=== PATIENT | male | born 1960 | race Caucasian/White ===

== ENCOUNTER 2023-01-24 05:54 | Day surgery (SDC) | payer OTHER ==
[2023-01-24] VITALS (18 sets, daily range): BP systolic 95–145; BP diastolic 57–90
[~2023-01-24] VITALS: Ht 175.3 cm; Wt 81.1 kg
[~2023-01-24 05:54] MED LIST: GABA100; LISI20 PO; Voltaren100 GM TOP
--- NOTE | 2023-01-24 06:59 | NUR ---
Ambulatory in Day Surgery Surgical site prepped with 2% Chlorhexidine cloth wipe. History, Chart, Medications and Allergies reviewed before start of procedure. Lungs clear T/O to Auscultation. Pre-Op teaching done. Pt verbalizes understanding.
--- NOTE | 2023-01-24 08:20 | NUR ---
01/24/23 0820 Carol Real PATIENT RECEIVED VANCO 1GM IV IN THE PRE OP SETTING PRIOR TO ARRIVING IN THE OR.
--- NOTE | 2023-01-24 10:50 | NUR ---
ARRIVAL PATIENT TO ROOM FROM PACU WHILE THIS RN RECEIVING REPORT FROM EMBALMER APPRENTICE. PATIENT DROWSY UPON ARRIVAL, WAKES TO VERBAL STIMULI THEN GOES BACK TO SLEEP, A&O X4. SOFT BP IN THE 90'S\70'S. O2 87-90% ON RA, 2L O2 PLACED ON PATIENT AT THIS TIME. HEART RATE 45-55 CURRENTLY. PREM WRAP & POLAR PACK TO LEFT KNEE. PATEINT REPORTS SENSATION TO BLE, ALTHOUGH SOME NUMBNESS. DENIES PAIN. ORIENTED TO ROOM & CALL LIGHT, IN REACH.
--- NOTE | 2023-01-24 13:22 | NUR ---
Pt. is awake in bed and welcomes my visit. Pt. is pleasant. Facilitated a life review and listened with interest and engagement. Pt. displayed evidence of being focused on recovery so that a second knee replacement could be scheduled. Prayed with Pt. Pt. displayed evidence of genuine appreciation for the spiritual care visit, and welcomed this front office director to return.
--- NOTE | 2023-01-24 18:24 | NUR ---
SHIFT SUMMARY POD 0 L TKA. PREM WRAP & POLAR PACK TO LEFT KNEE, C/D/I. EATING, DRINKING, & VOIDING W/O DIFFICULTY, DENIES N/V. PATIENT DENIES PAIN. WORKED WITH PHYSICAL THERAPY, AMBULATING WELL SBA W/ FWW & GB. UP TO CHAIR & BATHROOM THIS AFTERNOON. CALLS APPROPRIATELY, IN REACH. WILL REPORT TO ONCOMING RN AT 1900.
[2023-01-25 04:13] VITALS: BP 138/81
[2023-01-25 05:07] LABS: BASOPHILS ABSOLUTE AUTO 0.02 K/mm3 (0.00-0.23); BASOPHILS PERCENT AUTO 0 % (0-2); EOSINOPHILS ABSOLUTE AUTO 0.01 K/mm3 (0.00-0.68); EOSINOPHILS PERCENT AUTO 0 % (0-6); Hematocrit 34.5 % (37.0-53.0); Hemoglobin 11.8 g/dL (13.5-17.5); IMMATURE GRAN ABSOLUTE AUTO 0.12 K/mm3 (0.00-0.10); IMMATURE GRAN PERCENT AUTO 1 % (0-1); LYMPHOCYTES ABSOLUTE AUTO 1.87 K/mm3 (0.84-5.20); LYMPHOCYTES PERCENT AUTO 9 % (21-46); MONOCYTES ABSOLUTE AUTO 1.49 K/mm3 (0.16-1.47); MONOCYTES PERCENT AUTO 8 % (4-13); Mean Corpuscular HGB 31.7 pg (26.0-34.0); Mean Corpuscular HGB Conc 34.2 g/dL (31.5-36.5); Mean Corpuscular Volume 93 fL (80-100); NEUTROPHILS ABSOLUTE AUTO 16.47 K/mm3 (1.96-9.15); NEUTROPHILS PERCENT AUTO 82 % (41-73); Platelet Count 169 K/mm3 (150-400); RDW Coefficient Variation 13.2 % (11.7-14.2); RDW Standard Deviation 45.1 fL (35.1-46.3); Red Blood Cell Count 3.72 M/mm3 (4.30-5.90); White Blood Cell Count 19.98 K/mm3 (4.00-11.30)
--- NOTE | 2023-01-25 05:26 | NUR ---
SHIFT SUMMARY POD1, LEFT TKA. GAUZE/ PREM WRAP IN PLACE, C/D/I. CONTINUOUS POLAR PACK USE. A&OX4 UP IN RECLINER T/O NIGHT, LEGS ELEVATED. SELF EXERCISING/ROM TO LEGS PAIN MEDS 1X @HS, 2 OXY W/ RELIEF. DENIES N/T, N/V, OR SOB. VOIDED 1X BUT REPORTS FEELING ABLE TO URINATE AT THIS TIME ALTHOUGH WANTS TO SLEEP. HR CONTINUES TO BE HOMER @50 THIS AM, DENIES DIZZINESS. PLANS FOR POSSIBLE DC TODAY. CALL LIGHT W/IN REACH, WILL REPORT TO SAMINA EPPERSON.
[2023-01-25 05:42] LABS: Bun/Creatinine Ratio 25.7 (12.0-20.0); Calcium, Blood 8.9 mg/dL (8.5-10.1); Creatinine, Blood 1.01 mg/dL (0.60-1.20); Magnesium, Blood 2.1 mg/dL (1.6-2.4); Potassium, Blood 4.5 mmol/L (3.5-5.5)
[2023-01-25] MEDS ORDERED: ASPI81CH PO (07:10)
[2023-01-25] MEDS ORDERED: OXYC5 PO (07:10)
[2023-01-25] MEDS ORDERED: PROM25 PO (07:11)
[2023-01-25] MEDS ORDERED: SULTRIDS PO (07:12)
[2023-01-25 07:22] VITALS: BP 171/92
--- NOTE | 2023-01-25 09:02 | NUR ---
DISCHARGE PT HAS CLEARED THERAPY. PAIN WELL CONTROLLED PER EMAR. EATING, DRINKING, & VOIDING WELL. AQUACEL OVER EACH INCISION ON LEFT KNEE, C/D/I. AMBULATING WELL W/ FWW & GB. DISCUSSED DISCHARGE INSTRUCTIONS & SENT WITH PATIENT. PATIENT WAITING FOR RIDE.
[2023-01-25 09:08] VITALS: BP 153/85
--- NOTE | 2023-01-25 09:35 | NUR ---
ESCORTED OUT VIA W/C
== END 2023-01-25 09:39 | disposition home or self-care (01) ==
LOC: ORSCMMR 05:54 → SURS 11:18 → ORSCMMR 01-25 09:39
PROVIDERS: Orthopaedic Surgery
PROC: 0SRD0J9 Replacement of Left Knee Joint with Synthetic Substitute, Cemented, Open Approach (ICD-10-PCS; principal; 2023-01-24 07:30)
DX: M17.0 Bilateral primary osteoarthritis of knee (principal); I10 Essential (primary) hypertension; Z79.899 Other long term (current) drug therapy
CPT/HCPCS: 36415; 73560-LT; 80048; 83735; 85025; 97110; 97116; 97162; 97530; A9270; C1713; C1776; J0171; J0690; J0735; J1100; J1885; J2250; J2405; J2704; J2795; J3010; J3370; J7120

== ENCOUNTER 2023-11-27 13:57 | Observation (INO) | payer OTHER ==
[2023-11-27] VITALS (12 sets, daily range): BP systolic 132–184; BP diastolic 74–101
[~2023-11-27] VITALS: Ht 172.7 cm; Wt 87.2 kg
[~2023-11-27 13:57] MED LIST changes: +ASPI81CH PO; +OXYC5 PO; +PROM25 PO; +SULTRIDS PO
[2023-11-27] MEDS ORDERED: Lactated Ringer's 1,000 ML IV SCH (14:25)
[2023-11-27] MEDS ORDERED: Acetaminophen 500 MG Tab PO SCH (14:25)
[2023-11-27] MEDS ORDERED: Chlorhexidine Mouth Care 15 ML UDC MT SCH (14:25)
[2023-11-27] MEDS ORDERED: OxyCODONE HCL 10 MG TABCR PO SCH (14:25)
[2023-11-27] MEDS ORDERED: Vancomycin HCL 1,000 MG in NS 100 ML IV SCH (14:25)
[2023-11-27] MEDS ORDERED: CefTRIAXone Sodium 1,000 MG in NS 100 ML IV ONE ×2 (14:30→18:30)
[2023-11-27] MEDS ORDERED: Tranexamic Acid 100 ML IV SCH (14:34)
--- NOTE | 2023-11-27 14:37 | NUR ---
Ambulatory in Day Surgery History, Chart, Medications and Allergies reviewed before start of procedure. Pre-Op teaching done. Pt verbalizes understanding. Patient States Post-Procedure ride home has been arranged.
[2023-11-27] MEDS ORDERED: Norco 5-325 Ta1 EACH PO ×2 (14:47)
[2023-11-27] MEDS ORDERED: FentaNYL Citrate 50 MCG/ML 2 ML Injection ONE ×3 (15:21→16:44)
[2023-11-27] MEDS ORDERED: FentaNYL Citrate 50 MCG/ML 2 ML Injection IV ONE ×2 (15:25→15:50)
--- NOTE | 2023-11-27 15:27 | NUR ---
CONTINUES TO HAVE SEVERE LEFT HAND PAIN. AWAITING FOR SURGERY IN PRE-OP. NEW ORDERS PER DR DOVE TO GIVE FENTANYL 50MCG IV FOR PAIN CONTROL. WILL CONTINUE TO MONITOR AND TX PRN.
[2023-11-27] MEDS ORDERED: Metoclopramide HCl 10 MG Tab PO PRN (16:10)
[2023-11-27] MEDS ORDERED: Acetaminophen 325 MG TABLET PO PRN (16:10)
[2023-11-27] MEDS ORDERED: Magnesium Hydroxide Conc 10 ML UDC PO PRN (16:10)
[2023-11-27] MEDS ORDERED: Naloxone HCl 0.4MG / ML 1ML Vial IV PRN (16:10)
[2023-11-27] MEDS ORDERED: propofoL 20 ML IV ONE (16:12)
[2023-11-27] MEDS ORDERED: Ondansetron HCl 2 MG / ML 2ML Vial IV PRN ×2 (16:15→17:20)
[2023-11-27] MEDS ORDERED: Ondansetron 4 MG TAB PO PRN (16:15)
[2023-11-27] MEDS ORDERED: OxyCODONE HCL 5 MG TAB PO PRN (16:15)
[2023-11-27] MEDS ORDERED: Bisacodyl 10 MG Supp PR PRN (16:15)
[2023-11-27] MEDS ORDERED: HYDROmorphone HCl/Pf 1MG SYR IV PRN ×2 (16:20→17:25)
[2023-11-27] MEDS ORDERED: NS KCl 20mEq 1,000 ML IV SCH (16:20)
[2023-11-27] MEDS ORDERED: Naproxen 500 MG Tab PO PRN (16:25)
[2023-11-27] MEDS ORDERED: Ketorolac Tromethamine 30mg Vial IV PRN (16:25)
[2023-11-27] MEDS ORDERED: Midazolam HCl 1MG / ML 2ML Vial IV ONE (16:25)
[2023-11-27] MEDS ORDERED: Labetalol HCL 5 MG/ML 4ML Injection (Single Dose) ONE (16:46)
[2023-11-27] MEDS ORDERED: Ketamine HCl 100 MG / ML 5ML Vial ONE (16:50)
[2023-11-27] MEDS ORDERED: Glycopyrrolate 0.2 MG/ML 5ML VIAL ONE (16:58)
[2023-11-27] MEDS ORDERED: Phenylephrine HCl 100 MCG/ML-NS 10MLSYR (1MG/10ML) ONE (17:04)
[2023-11-27] MEDS ORDERED: Ondansetron HCl 2 MG / ML 2ML Vial ONE (17:11)
[2023-11-27] MEDS ORDERED: Dexamethasone Sod Phos 10 MG/ML 1ML VIAL ONE (17:11)
--- NOTE | 2023-11-27 17:16 | NUR ---
11/27/23 1715 Erika Andino 1GM ROCHEPHIN GIVEN BY ANESTHESIA AT 1712
[2023-11-27] MEDS ORDERED: Ropivacaine 0.5% HCl/Pf 5 MG/ML 20ML VIAL ONE (17:17)
[2023-11-27] MEDS ORDERED: FentaNYL Citrate 50 MCG/ML 2 ML Injection IV PRN ×2 (17:20→17:25)
[2023-11-27] MEDS ORDERED: Flumazenil 0.1 MG / ML 5ML Vial ONE (17:35)
[2023-11-27] MEDS ORDERED: Lisinopril 20 MG Tab PO ONE (18:35)
--- NOTE | 2023-11-27 19:12 | NUR ---
PT ARRIVED TO FLOOR FROM PACU. ORIENTED TO ROOM. PT MEDICATED FOR PAIN AND BP. DINNER PROVIDED. AMBULATED TO RESTROOM AND VOIDED. REPORT GIVEN TO ONCOMING SHIFT. CALL LIGHT WITHIN REACH.
[2023-11-27] MEDS ORDERED: NS 250 ML IV PRN (19:40)
[2023-11-27] MEDS ORDERED: Docusate Sodium 100 MG Cap PO SCH (21:00)
[2023-11-28 02:13] VITALS: BP 157/101
--- NOTE | 2023-11-28 04:45 | NUR ---
SHIFT SUMMARY POD 1 L WRIST I&D PT SLEPT FOR MOST OF THE NIGHT. PAIN MANAGED PER EMAR. TOLERATING PO INTAKE, VOIDING. ABLE TO WIGGLE FINGERS IN L HAND. DRESSING TO L HAND/WRIST IS C/D/I. A LITTLE HYPERTENSIVE THIS MORNING BUT WILL BE GETTING HIS MORNING DOSE OF LISINOPRIL. NO OTHER NEEDS AT THIS TIME, CALL LIGHT WITHIN REACH
[2023-11-28] MEDS ORDERED: Vancomycin HCL 1,250 MG in NS 250 ML IV SCH (05:00)
[2023-11-28 05:55] LABS: BASOPHILS ABSOLUTE AUTO 0.01 K/mm3 (0.00-0.23); BASOPHILS PERCENT AUTO 0 % (0-2); EOSINOPHILS PERCENT AUTO 0 % (0-6); Hematocrit 27.2 % (37.0-53.0); Hemoglobin 9.2 g/dL (13.5-17.5); IMMATURE GRAN ABSOLUTE AUTO 0.07 K/mm3 (0.00-0.10); IMMATURE GRAN PERCENT AUTO 1 % (0-1); LYMPHOCYTES ABSOLUTE AUTO 1.42 K/mm3 (0.84-5.20); LYMPHOCYTES PERCENT AUTO 10 % (21-46); MONOCYTES ABSOLUTE AUTO 1.01 K/mm3 (0.16-1.47); MONOCYTES PERCENT AUTO 7 % (4-13); Mean Corpuscular HGB 31.2 pg (26.0-34.0); Mean Corpuscular HGB Conc 33.8 g/dL (31.5-36.5); Mean Corpuscular Volume 92 fL (80-100); Mean Platelet Volume 10.6 fL (9.1-12.4); NEUTROPHILS ABSOLUTE AUTO 11.58 K/mm3 (1.96-9.15); NEUTROPHILS PERCENT AUTO 82 % (41-73); Platelet Count 244 K/mm3 (150-400); RDW Coefficient Variation 14.6 % (11.7-14.2); RDW Standard Deviation 49.7 fL (35.1-46.3); Red Blood Cell Count 2.95 M/mm3 (4.30-5.90); White Blood Cell Count 14.09 K/mm3 (4.00-11.30)
[2023-11-28 06:02] LABS: Bun/Creatinine Ratio 40.2 (12.0-20.0); C-REACTIVE PROTEIN, EXT RANGE 7.43 mg/dL (0.000-0.300); Calcium, Blood 9.6 mg/dL (8.5-10.1); Creatinine, Blood 0.77 mg/dL (0.60-1.20); Magnesium, Blood 1.7 mg/dL (1.6-2.4); Potassium, Blood 4.6 mmol/L (3.5-5.5)
[2023-11-28 07:04] VITALS: BP 156/85
[2023-11-28] MEDS ORDERED: Lisinopril 20 MG Tab PO SCH (09:00)
[2023-11-28] MEDS ORDERED: CefTRIAXone Sodium 2,000 MG in NS 100 ML IV SCH (09:00)
[2023-11-28 14:45] VITALS: BP 159/81
[2023-11-28] MEDS ORDERED: Percocet 5-3251 EACH PO ×2 (15:36)
--- NOTE | 2023-11-28 16:28 | NUR ---
SHIFT/DISCHARGE SUMMARY PATIENT DISCHARGE PAPERWORK AND FOLLOW UP APPT. ARE COMPLETED. PATIENT RECIEVING LAST DOSE OF VANCO IN PICC. PERIPHERAL IV DC'D INTACT. PATIENT TO COME TO [facility] IN AM FOR INFUSIONS. PATIENT RIDE IS COMING AT 1800.
--- NOTE | 2023-11-28 17:12 | NUR ---
NG TUBE PLACED DOBHOFF AND X-RAY WAS DONE CONFIRMED PLACEMENT WITH DR. ADAME TUBE FEED RESUMED.
--- NOTE | 2023-11-28 17:31 | NUR ---
SUMMARY PATIENT IN SOFT WRIST RESTRAINTS FOR LINE PULLING, NEW DOBHOFF PLACED, FEEDS RESUMED. STILL INFUSING CPN. PATIENT IS STILL CONFUSED AND TRIES TO GET OUT OF BED, BED ALARM ON. PICCO DRESSING TAKEN OFF AND MEDIPORE DRESSING PLACED OVER MIDLINE, NEW OSTOMY APPLIANCE PLACED AND WOUND CLEANED WITH WOUND CLEANSER AND GAUZE. S/S DRNG NOTED ABOUT MIDDLE OF MEDIPORE. OSTOMY OUT PUT BROWN LIQUID, STOMA IS PINK AND BEEFY. VSS, CALL LIGHT IN REACH WILL REPORT TO B2B APPOINTMENT SETTER.
== END 2023-11-28 18:18 | disposition home or self-care (01) ==
LOC: ORSCMMR 13:57 → SURS 13:57 → ORSCMMR 13:59 → SURS 18:07 → ORSCMMR 18:08 → SURS 18:08
PROVIDERS: ADMIT Orthopaedic Surgery
PROC: 0L960ZZ Drainage of Left Lower Arm and Wrist Tendon, Open Approach (ICD-10-PCS; principal; 2023-11-27 16:00)
DX: M65.132 Other infective (teno)synovitis, left wrist (principal); I10 Essential (primary) hypertension; Z79.899 Other long term (current) drug therapy
CPT/HCPCS: 36415; 36573; 80048; 83735; 85025; 85651; 86140; 87070; 87071; 87075; 87077; 87147; 87186; 87205; 93005; 93010; 97110; 97165; A9270; C1751; J0696; J1100; J1885; J2250; J2371; J2405; J2704; J2795; J3010; J3370; J7050; J7120

== ENCOUNTER 2023-11-29 02:05 | Day surgery (SDC) | payer OTHER ==
[~2023-11-29] VITALS: Ht 172.7 cm; Wt 87.2 kg
[~2023-11-29 02:05] MED LIST changes: +CefTRIAXone Sodium 2,000 MG in NS 100 ML IV SCH; +Norco 5-325 Ta1 EACH PO; +Percocet 5-3251 EACH PO
[2023-11-29 07:30] VITALS: BP 115/82
[2023-11-29] MEDS ORDERED: Vancomycin HCL 1,250 MG in NS 250 ML IV SCH (08:35)
[2023-11-29 08:57] LABS: Creatinine, Blood 0.99 mg/dL (0.60-1.20)
[2023-11-29 16:00] VITALS: BP 123/77
[2023-11-30 10:22] LABS: Vancomycin, Trough 7.1 ug/mL (5.0-10.0)
== END 2023-11-29 23:14 | disposition home or self-care (01) ==
LOC: ATC 02:05
PROVIDERS: Orthopaedic Surgery
DX: I10 Essential (primary) hypertension (principal); M01.X42 Direct infection of left hand in infectious and parasitic diseases classified elsewhere; Z79.899 Other long term (current) drug therapy; T81.44XA Sepsis following a procedure, initial encounter
CPT/HCPCS: 80202; 82565; 96365; 96367; J0696; J3370; J7050

== ENCOUNTER 2023-12-01 05:43 | Day surgery (SDC) | payer OTHER ==
[~2023-12-01 05:43] MED LIST changes: -CefTRIAXone Sodium 2,000 MG in NS 100 ML IV SCH
[2023-12-01] MEDS ORDERED: Vancomycin HCL 1,500 MG in NS 250 ML IV SCH (06:00)
[2023-12-01] MEDS ORDERED: CefTRIAXone Sodium 2,000 MG in NS 100 ML IV SCH (07:00)
[2023-12-01 07:22] VITALS: BP 138/71
[2023-12-01 16:35] VITALS: BP 155/95
== END 2023-12-01 18:07 | disposition home or self-care (01) ==
LOC: ATC 05:43
DX: M01.X42 Direct infection of left hand in infectious and parasitic diseases classified elsewhere (principal); I10 Essential (primary) hypertension
CPT/HCPCS: 96365; 96366; 96376; J0696; J3370; J7050

== ENCOUNTER 2023-12-02 07:31 | Day surgery (SDC) | payer OTHER ==
[2023-12-02 07:35] VITALS: BP 125/72
[2023-12-02] MEDS ORDERED: CefTRIAXone Sodium 2,000 MG in NS 100 ML IV SCH (07:45)
[2023-12-02 08:09] LABS: Vancomycin, Trough 16.1 ug/mL (5.0-10.0)
[2023-12-02] MEDS ORDERED: Vancomycin HCL 1,250 MG in NS 250 ML IV SCH (08:25)
[2023-12-02 16:20] VITALS: BP 163/91
== END 2023-12-02 17:40 | disposition home or self-care (01) ==
LOC: ATC 07:31
PROVIDERS: Orthopaedic Surgery
DX: M01.X42 Direct infection of left hand in infectious and parasitic diseases classified elsewhere (principal); I10 Essential (primary) hypertension
CPT/HCPCS: 80202; 82565; 96365; 96367; J0696; J3370; J7050

== ENCOUNTER 2023-12-05 01:54 | Day surgery (SDC) | payer OTHER ==
[2023-12-05] MEDS ORDERED: CefTRIAXone Sodium 2,000 MG in NS 100 ML IV SCH (06:00)
[2023-12-05] MEDS ORDERED: Vancomycin HCL 1,250 MG in NS 250 ML IV SCH (07:35)
[2023-12-05 07:36] VITALS: BP 143/81
[2023-12-05 08:09] LABS: Creatinine, Blood 0.87 mg/dL (0.60-1.20); Vancomycin, Trough 14.8 ug/mL (5.0-10.0)
== END 2023-12-05 09:47 | disposition home or self-care (01) ==
LOC: ATC 01:54
PROVIDERS: Family Medicine
DX: M01.X42 Direct infection of left hand in infectious and parasitic diseases classified elsewhere (principal); I10 Essential (primary) hypertension
CPT/HCPCS: 80202; 82565; 96365; 96367; J0696; J3370; J7050

== ENCOUNTER 2023-12-07 04:05 | Day surgery (SDC) | payer OTHER ==
[~2023-12-07 04:05] MED LIST changes: +CefTRIAXone Sodium 2,000 MG in NS 100 ML IV SCH
[2023-12-07 07:37] VITALS: BP 144/89
== END 2023-12-07 08:01 | disposition home or self-care (01) ==
LOC: ATC 04:05
DX: M01.X42 Direct infection of left hand in infectious and parasitic diseases classified elsewhere (principal); I10 Essential (primary) hypertension; Z79.899 Other long term (current) drug therapy
CPT/HCPCS: 96365; J0696

== ENCOUNTER 2023-12-08 02:05 | Day surgery (SDC) | payer OTHER ==
[2023-12-08 07:40] VITALS: BP 138/70
[2023-12-09] MEDS ORDERED: CEFTRIAXONE2 G1 IV (08:26)
== END 2023-12-08 08:00 | disposition home or self-care (01) ==
LOC: ATC 02:05
DX: M65.132 Other infective (teno)synovitis, left wrist (principal); A49.01 Methicillin susceptible Staphylococcus aureus infection, unspecified site; I10 Essential (primary) hypertension; Z79.899 Other long term (current) drug therapy; Z79.891 Long term (current) use of opiate analgesic
CPT/HCPCS: 96365; J0696

== ENCOUNTER 2023-12-09 02:08 | Day surgery (SDC) | payer OTHER ==
[2023-12-09 07:42] VITALS: BP 133/81
[2023-12-09] MEDS ORDERED: CEFTRIAXONE2 G1 IV (08:26)
== END 2023-12-09 08:07 | disposition home or self-care (01) ==
LOC: ATC 02:08
DX: M01.X42 Direct infection of left hand in infectious and parasitic diseases classified elsewhere (principal); I10 Essential (primary) hypertension
CPT/HCPCS: 96365; J0696

== ENCOUNTER 2023-12-10 05:07 | Day surgery (SDC) | payer OTHER ==
[~2023-12-10 05:07] MED LIST changes: +CEFTRIAXONE2 G1 IV
[2023-12-10 07:47] VITALS: BP 147/83
[2023-12-10 08:50] LABS: BASOPHILS ABSOLUTE AUTO 0.06 K/mm3 (0.00-0.23); BASOPHILS PERCENT AUTO 1 % (0-2); EOSINOPHILS ABSOLUTE AUTO 0.22 K/mm3 (0.00-0.68); EOSINOPHILS PERCENT AUTO 3 % (0-6); Hematocrit 22.8 % (37.0-53.0); Hemoglobin 7.2 g/dL (13.5-17.5); IMMATURE GRAN ABSOLUTE AUTO 0.03 K/mm3 (0.00-0.10); IMMATURE GRAN PERCENT AUTO 0 % (0-1); LYMPHOCYTES ABSOLUTE AUTO 1.84 K/mm3 (0.84-5.20); LYMPHOCYTES PERCENT AUTO 24 % (21-46); MONOCYTES ABSOLUTE AUTO 0.75 K/mm3 (0.16-1.47); MONOCYTES PERCENT AUTO 10 % (4-13); Mean Corpuscular HGB 31.2 pg (26.0-34.0); Mean Corpuscular HGB Conc 31.6 g/dL (31.5-36.5); Mean Corpuscular Volume 99 fL (80-100); Mean Platelet Volume 9.6 fL (9.1-12.4); NEUTROPHILS ABSOLUTE AUTO 4.68 K/mm3 (1.96-9.15); NEUTROPHILS PERCENT AUTO 62 % (41-73); Platelet Count 407 K/mm3 (150-400); RDW Coefficient Variation 16.2 % (11.7-14.2); RDW Standard Deviation 58.7 fL (35.1-46.3); Red Blood Cell Count 2.31 M/mm3 (4.30-5.90); White Blood Cell Count 7.58 K/mm3 (4.00-11.30)
== END 2023-12-10 08:10 | disposition home or self-care (01) ==
LOC: ATC 05:07
PROVIDERS: Orthopaedic Surgery
DX: T81.44XA Sepsis following a procedure, initial encounter (principal); M01.X42 Direct infection of left hand in infectious and parasitic diseases classified elsewhere; I10 Essential (primary) hypertension
CPT/HCPCS: 85025; 85651; 86140; 96365; J0696

== ENCOUNTER 2023-12-11 01:26 | Day surgery (SDC) | payer OTHER ==
[~2023-12-11 01:26] MED LIST changes: -CefTRIAXone Sodium 2,000 MG in NS 100 ML IV SCH
[2023-12-11] MEDS ORDERED: CefTRIAXone Sodium 2,000 MG in NS 100 ML IV SCH (06:00)
== END 2023-12-11 08:17 | disposition home or self-care (01) ==
LOC: ATC 01:26
DX: M65.132 Other infective (teno)synovitis, left wrist (principal); I10 Essential (primary) hypertension; B95.61 Methicillin susceptible Staphylococcus aureus infection as the cause of diseases classified elsewhere
CPT/HCPCS: 96365; J0696

== ENCOUNTER 2023-12-12 03:30 | Day surgery (SDC) | payer OTHER ==
[~2023-12-12 03:30] MED LIST changes: +CefTRIAXone Sodium 2,000 MG in NS 100 ML IV SCH
[2023-12-12 07:59] VITALS: BP 152/85
[2023-12-12 09:14] LABS: BASOPHILS ABSOLUTE AUTO 0.04 K/mm3 (0.00-0.23); BASOPHILS PERCENT AUTO 1 % (0-2); EOSINOPHILS ABSOLUTE AUTO 0.19 K/mm3 (0.00-0.68); EOSINOPHILS PERCENT AUTO 3 % (0-6); Hematocrit 22.3 % (37.0-53.0); Hemoglobin 7.1 g/dL (13.5-17.5); IMMATURE GRAN ABSOLUTE AUTO 0.02 K/mm3 (0.00-0.10); IMMATURE GRAN PERCENT AUTO 0 % (0-1); LYMPHOCYTES ABSOLUTE AUTO 1.52 K/mm3 (0.84-5.20); LYMPHOCYTES PERCENT AUTO 21 % (21-46); MONOCYTES ABSOLUTE AUTO 0.78 K/mm3 (0.16-1.47); MONOCYTES PERCENT AUTO 11 % (4-13); Mean Corpuscular HGB 31.3 pg (26.0-34.0); Mean Corpuscular HGB Conc 31.8 g/dL (31.5-36.5); Mean Corpuscular Volume 98 fL (80-100); Mean Platelet Volume 9.7 fL (9.1-12.4); NEUTROPHILS ABSOLUTE AUTO 4.54 K/mm3 (1.96-9.15); NEUTROPHILS PERCENT AUTO 64 % (41-73); Platelet Count 358 K/mm3 (150-400); RDW Coefficient Variation 15.9 % (11.7-14.2); RDW Standard Deviation 57.1 fL (35.1-46.3); Red Blood Cell Count 2.27 M/mm3 (4.30-5.90); White Blood Cell Count 7.09 K/mm3 (4.00-11.30)
[2023-12-12 09:44] LABS: Alanine Aminotransfer (ALT/SGP 28 U/L (12-78); Albumin, Blood 2.4 g/dL (3.4-5.0); Albumin/Globulin Ratio 0.9 (0.8-1.8); Alk Phos 84 U/L (50-136); Anion Gap 7 mmol/L (3-11); Aspartate Aminotrans (AST/SGOT 16 U/L (12-37); Bilirubin, Total 0.1 mg/dL (0.1-1.0); Blood Urea Nitrogen 17 mg/dL (8-24); Bun/Creatinine Ratio 25.4 (12.0-20.0); C-REACTIVE PROTEIN, EXT RANGE <0.290 mg/dL (0.000-0.300); CO2, Blood 22 mmol/L (21-32); Calcium, Blood 6.9 mg/dL (8.5-10.1); Chloride, Blood 118 mmol/L (98-108); Creatinine, Blood 0.67 mg/dL (0.60-1.20); Globulin, Blood 2.6 g/dL (2.2-4.0); Glomerular Filtration Rate 105 (60-); Glucose, Blood 110 mg/dL (70-99); Potassium, Blood 3.4 mmol/L (3.5-5.5); Sodium, Blood 144 mmol/L (136-145)
== END 2023-12-12 08:21 | disposition home or self-care (01) ==
LOC: ATC 03:30
PROVIDERS: Orthopaedic Surgery
DX: M65.132 Other infective (teno)synovitis, left wrist (principal); B95.61 Methicillin susceptible Staphylococcus aureus infection as the cause of diseases classified elsewhere; I10 Essential (primary) hypertension; Z79.899 Other long term (current) drug therapy
CPT/HCPCS: 80053; 85025; 86140; 96365; J0696

== ENCOUNTER 2023-12-13 04:30 | Day surgery (SDC) | payer OTHER ==
[~2023-12-13 04:30] MED LIST changes: -CefTRIAXone Sodium 2,000 MG in NS 100 ML IV SCH
[2023-12-13] MEDS ORDERED: CefTRIAXone Sodium 2,000 MG in NS 100 ML IV SCH (07:00)
[2023-12-13 07:35] VITALS: BP 157/82
== END 2023-12-13 08:00 | disposition home or self-care (01) ==
LOC: ATC 04:30
DX: M65.132 Other infective (teno)synovitis, left wrist (principal); B95.61 Methicillin susceptible Staphylococcus aureus infection as the cause of diseases classified elsewhere; I10 Essential (primary) hypertension
CPT/HCPCS: 96365; J0696

== ENCOUNTER 2023-12-14 01:55 | Day surgery (SDC) | payer OTHER ==
[2023-12-14] MEDS ORDERED: CefTRIAXone Sodium 2,000 MG in NS 100 ML IV SCH (06:00)
[2023-12-14 07:48] VITALS: BP 152/96
== END 2023-12-14 08:06 | disposition home or self-care (01) ==
LOC: ATC 01:55
DX: M65.132 Other infective (teno)synovitis, left wrist (principal); A49.01 Methicillin susceptible Staphylococcus aureus infection, unspecified site; I10 Essential (primary) hypertension; Z79.899 Other long term (current) drug therapy
CPT/HCPCS: 96365; J0696

== ENCOUNTER 2023-12-15 04:13 | Day surgery (SDC) | payer OTHER ==
[~2023-12-15 04:13] MED LIST changes: +CefTRIAXone Sodium 2,000 MG in NS 100 ML IV SCH
[2023-12-15 07:35] VITALS: BP 135/93
== END 2023-12-15 07:59 | disposition home or self-care (01) ==
LOC: ATC 04:13
DX: M65.132 Other infective (teno)synovitis, left wrist (principal); A49.01 Methicillin susceptible Staphylococcus aureus infection, unspecified site; I10 Essential (primary) hypertension
CPT/HCPCS: 96365; J0696

== ENCOUNTER 2023-12-16 00:21 | Day surgery (SDC) | payer OTHER ==
[~2023-12-16 00:21] MED LIST changes: -CefTRIAXone Sodium 2,000 MG in NS 100 ML IV SCH
[2023-12-16] MEDS ORDERED: CefTRIAXone Sodium 2,000 MG in NS 100 ML IV SCH (01:00)
[2023-12-16 07:39] VITALS: BP 161/90
== END 2023-12-16 08:03 | disposition home or self-care (01) ==
LOC: ATC 00:21
DX: M65.132 Other infective (teno)synovitis, left wrist (principal); B95.61 Methicillin susceptible Staphylococcus aureus infection as the cause of diseases classified elsewhere; I10 Essential (primary) hypertension; Z79.899 Other long term (current) drug therapy
CPT/HCPCS: 96365; J0696

== ENCOUNTER 2023-12-17 04:45 | Day surgery (SDC) | payer OTHER ==
[~2023-12-17 04:45] MED LIST changes: +CefTRIAXone Sodium 2,000 MG in NS 100 ML IV SCH
[2023-12-17 07:48] VITALS: BP 137/84
== END 2023-12-17 08:06 | disposition home or self-care (01) ==
LOC: ATC 04:45
DX: M65.132 Other infective (teno)synovitis, left wrist (principal); B95.61 Methicillin susceptible Staphylococcus aureus infection as the cause of diseases classified elsewhere; I10 Essential (primary) hypertension
CPT/HCPCS: 96365; J0696

== ENCOUNTER 2023-12-18 02:41 | Day surgery (SDC) | payer OTHER ==
[2023-12-18 13:44] VITALS: BP 158/96
== END 2023-12-18 14:08 | disposition home or self-care (01) ==
LOC: ATC 02:41
DX: M65.132 Other infective (teno)synovitis, left wrist (principal); B95.61 Methicillin susceptible Staphylococcus aureus infection as the cause of diseases classified elsewhere; I10 Essential (primary) hypertension; Z79.899 Other long term (current) drug therapy
CPT/HCPCS: 96365; J0696

== ENCOUNTER 2023-12-19 03:19 | Day surgery (SDC) | payer OTHER ==
[~2023-12-19 03:19] MED LIST changes: -CefTRIAXone Sodium 2,000 MG in NS 100 ML IV SCH
[2023-12-19] MEDS ORDERED: CefTRIAXone Sodium 2,000 MG in NS 100 ML IV SCH (06:00)
[2023-12-19 16:17] VITALS: BP 150/97
[2023-12-19 16:31] LABS: BASOPHILS ABSOLUTE AUTO 0.09 K/mm3 (0.00-0.23); BASOPHILS PERCENT AUTO 1 % (0-2); EOSINOPHILS ABSOLUTE AUTO 0.21 K/mm3 (0.00-0.68); EOSINOPHILS PERCENT AUTO 3 % (0-6); Hematocrit 28.9 % (37.0-53.0); Hemoglobin 9.2 g/dL (13.5-17.5); IMMATURE GRAN ABSOLUTE AUTO 0.03 K/mm3 (0.00-0.10); IMMATURE GRAN PERCENT AUTO 0 % (0-1); LYMPHOCYTES ABSOLUTE AUTO 1.81 K/mm3 (0.84-5.20); LYMPHOCYTES PERCENT AUTO 24 % (21-46); MONOCYTES ABSOLUTE AUTO 0.81 K/mm3 (0.16-1.47); MONOCYTES PERCENT AUTO 11 % (4-13); Mean Corpuscular HGB 29.6 pg (26.0-34.0); Mean Corpuscular HGB Conc 31.8 g/dL (31.5-36.5); Mean Corpuscular Volume 93 fL (80-100); Mean Platelet Volume 10.2 fL (9.1-12.4); NEUTROPHILS ABSOLUTE AUTO 4.76 K/mm3 (1.96-9.15); NEUTROPHILS PERCENT AUTO 62 % (41-73); Platelet Count 296 K/mm3 (150-400); RDW Coefficient Variation 15.4 % (11.7-14.2); RDW Standard Deviation 52.1 fL (35.1-46.3); Red Blood Cell Count 3.11 M/mm3 (4.30-5.90); White Blood Cell Count 7.71 K/mm3 (4.00-11.30)
[2023-12-19 16:55] LABS: C-REACTIVE PROTEIN, EXT RANGE 0.392 mg/dL (0.000-0.300)
[2023-12-19 16:58] LABS: Albumin, Blood 3.7 g/dL (3.4-5.0); Albumin/Globulin Ratio 1.1 (0.8-1.8); Bilirubin, Total 0.6 mg/dL (0.1-1.0); Bun/Creatinine Ratio 16.2 (12.0-20.0); Calcium, Blood 9.4 mg/dL (8.5-10.1); Creatinine, Blood 0.99 mg/dL (0.60-1.20); Globulin, Blood 3.5 g/dL (2.2-4.0); Potassium, Blood 4.3 mmol/L (3.5-5.5); Total Protein, Blood 7.2 g/dL (6.4-8.2)
== END 2023-12-19 16:32 | disposition home or self-care (01) ==
LOC: ATC 03:19
PROVIDERS: Internal Medicine Infectious Disease
DX: M65.132 Other infective (teno)synovitis, left wrist (principal); B95.61 Methicillin susceptible Staphylococcus aureus infection as the cause of diseases classified elsewhere; I10 Essential (primary) hypertension; Z79.899 Other long term (current) drug therapy
CPT/HCPCS: 80053; 85025; 86140; 96365; J0696

== ENCOUNTER 2023-12-20 02:52 | Day surgery (SDC) | payer OTHER ==
[~2023-12-20 02:52] MED LIST changes: +CefTRIAXone Sodium 2,000 MG in NS 100 ML IV SCH
[2023-12-20 07:46] VITALS: BP 159/97
== END 2023-12-20 08:23 | disposition home or self-care (01) ==
LOC: ATC 02:52
DX: M65.132 Other infective (teno)synovitis, left wrist (principal); B95.61 Methicillin susceptible Staphylococcus aureus infection as the cause of diseases classified elsewhere
CPT/HCPCS: 96365; J0696

== ENCOUNTER 2023-12-22 02:29 | Day surgery (SDC) | payer OTHER ==
[2023-12-22 07:46] VITALS: BP 150/94
== END 2023-12-22 08:07 | disposition home or self-care (01) ==
LOC: ATC 02:29
DX: M65.132 Other infective (teno)synovitis, left wrist (principal); A49.01 Methicillin susceptible Staphylococcus aureus infection, unspecified site; I10 Essential (primary) hypertension
CPT/HCPCS: 96365; J0696

== ENCOUNTER 2023-12-23 02:55 | Day surgery (SDC) | payer OTHER ==
[2023-12-23 07:40] VITALS: BP 149/85
== END 2023-12-23 08:04 | disposition home or self-care (01) ==
LOC: ATC 02:55
DX: M65.132 Other infective (teno)synovitis, left wrist (principal); B95.61 Methicillin susceptible Staphylococcus aureus infection as the cause of diseases classified elsewhere; I10 Essential (primary) hypertension; Z79.899 Other long term (current) drug therapy
CPT/HCPCS: 96365; J0696

== ENCOUNTER 2023-12-24 00:19 | Day surgery (SDC) | payer OTHER ==
[~2023-12-24 00:19] MED LIST changes: -CefTRIAXone Sodium 2,000 MG in NS 100 ML IV SCH
[2023-12-24] MEDS ORDERED: CefTRIAXone Sodium 2,000 MG in NS 100 ML IV SCH (01:00)
[2023-12-24 07:50] VITALS: BP 148/96
== END 2023-12-24 08:03 | disposition home or self-care (01) ==
LOC: ATC 00:19
DX: A49.01 Methicillin susceptible Staphylococcus aureus infection, unspecified site (principal); M01.X42 Direct infection of left hand in infectious and parasitic diseases classified elsewhere; I10 Essential (primary) hypertension; Z79.899 Other long term (current) drug therapy
CPT/HCPCS: 96365; J0696

== ENCOUNTER 2023-12-25 00:56 | Day surgery (SDC) | payer OTHER ==
[2023-12-25 08:00] VITALS: BP 155/98
== END 2023-12-25 08:05 | disposition home or self-care (01) ==
LOC: ATC 00:56
DX: M65.132 Other infective (teno)synovitis, left wrist (principal); B95.61 Methicillin susceptible Staphylococcus aureus infection as the cause of diseases classified elsewhere; Z79.899 Other long term (current) drug therapy; I10 Essential (primary) hypertension

== ENCOUNTER 2023-12-26 04:37 | Day surgery (SDC) | payer OTHER ==
[~2023-12-26 04:37] MED LIST changes: +CefTRIAXone Sodium 2,000 MG in NS 100 ML IV SCH
[2023-12-26 07:54] VITALS: BP 157/96
[2023-12-26 08:22] LABS: BASOPHILS PERCENT AUTO 2 % (0-2); EOSINOPHILS ABSOLUTE AUTO 0.21 K/mm3 (0.00-0.68); EOSINOPHILS PERCENT AUTO 3 % (0-6); Hematocrit 31.1 % (37.0-53.0); Hemoglobin 9.8 g/dL (13.5-17.5); IMMATURE GRAN ABSOLUTE AUTO 0.02 K/mm3 (0.00-0.10); IMMATURE GRAN PERCENT AUTO 0 % (0-1); LYMPHOCYTES ABSOLUTE AUTO 1.49 K/mm3 (0.84-5.20); LYMPHOCYTES PERCENT AUTO 22 % (21-46); MONOCYTES ABSOLUTE AUTO 0.88 K/mm3 (0.16-1.47); MONOCYTES PERCENT AUTO 13 % (4-13); Mean Corpuscular HGB 28.7 pg (26.0-34.0); Mean Corpuscular HGB Conc 31.5 g/dL (31.5-36.5); Mean Corpuscular Volume 91 fL (80-100); Mean Platelet Volume 10.8 fL (9.1-12.4); NEUTROPHILS ABSOLUTE AUTO 4.17 K/mm3 (1.96-9.15); NEUTROPHILS PERCENT AUTO 61 % (41-73); Platelet Count 220 K/mm3 (150-400); RDW Coefficient Variation 15.4 % (11.7-14.2); RDW Standard Deviation 51.1 fL (35.1-46.3); Red Blood Cell Count 3.42 M/mm3 (4.30-5.90); White Blood Cell Count 6.87 K/mm3 (4.00-11.30)
[2023-12-26 08:39] LABS: C-REACTIVE PROTEIN, EXT RANGE <0.290 mg/dL (0.000-0.300)
[2023-12-26 08:42] LABS: Alanine Aminotransfer (ALT/SGP 43 U/L (12-78); Albumin, Blood 3.7 g/dL (3.4-5.0); Albumin/Globulin Ratio 1.1 (0.8-1.8); Alk Phos 112 U/L (50-136); Anion Gap 10 mmol/L (3-11); Aspartate Aminotrans (AST/SGOT 33 U/L (12-37); Bilirubin, Total 0.4 mg/dL (0.1-1.0); Blood Urea Nitrogen 18 mg/dL (8-24); Bun/Creatinine Ratio 22.1 (12.0-20.0); CO2, Blood 25 mmol/L (21-32); Calcium, Blood 9.1 mg/dL (8.5-10.1); Chloride, Blood 107 mmol/L (98-108); Creatinine, Blood 0.81 mg/dL (0.60-1.20); Globulin, Blood 3.3 g/dL (2.2-4.0); Glomerular Filtration Rate 99 (60-); Glucose, Blood 174 mg/dL (70-99); Sodium, Blood 138 mmol/L (136-145)
--- NOTE | 2023-12-26 10:46 | NUR ---
PICC LEFT IN UNTIL PT TALKS WITH
== END 2023-12-26 08:07 | disposition home or self-care (01) ==
LOC: ATC 04:37
PROVIDERS: Internal Medicine Infectious Disease
DX: M65.132 Other infective (teno)synovitis, left wrist (principal); A49.01 Methicillin susceptible Staphylococcus aureus infection, unspecified site; I10 Essential (primary) hypertension
CPT/HCPCS: 80053; 85025; 86140; 96365; J0696